=== PATIENT | female | born 1960 | race Caucasian/White ===

== ENCOUNTER → 2016-11-28 | Outpatient (CLI) | payer OTHER ==
[~2016-11-28] MED LIST: Z.0.NO CURRENT MEDS; ZITH500T PO
[2016-11-28 07:33] LABS: BASOPHIL # 0.1 TH/MM3 (0-0.2); BASOPHIL % 0.8 % (0.0-2.0); EOSINOPHIL # 0.3 TH/MM3 (0-0.4); EOSINOPHIL % 4.1 % (0.0-4.0); HEMATOCRIT 38.3 % (35.0-46.0); HEMO FLAGS DIFF FINAL; LYMPH % 25.2 % (9.0-44.0); LYMPHOCYTE # 1.7 TH/MM3 (1.0-4.8); MEAN CELL VOLUME 84.3 FL (80.0-100.0); MEAN CORPUSCULAR HEMOGLOBIN 28.6 PG (27.0-34.0); MEAN CORPUSCULAR HGB CONC 33.9 % (32.0-36.0); MONO % 9.6 % (0.0-8.0); NEUT % 60.3 % (16.0-70.0); PLATELET COUNT 291 TH/MM3 (150-450); RED BLOOD COUNT 4.54 MIL/MM3 (4.00-5.30); RED CELL DISTRIBUTION WIDTH 13.4 % (11.6-17.2); WHITE BLOOD COUNT 6.6 TH/MM3 (4.0-11.0)
[2016-11-28 07:47] LABS: BLOOD, URINE NEG (NEG); GLUCOSE,URINE NEG (NEG); KETONE, URINE NEG (NEG); NITRITE,URINE NEG (NEG); SQUAMOUS EPITHELIAL CELL URINE 2 /hpf (0-5); TRANSITIONAL EPI CELLS, URINE <1 /hpf; URINE COLOR YELLOW (YELLW/STRAW)
[2016-11-28 08:02] LABS: ALKALINE PHOSPHATASE 105 U/L (45-117); ALT (GPT) 20 U/L (10-53); ANION GAP 6 MEQ/L (5-15); AST (GOT) 16 U/L (15-37); BICARBONATE 29.6 MEQ/L (21.0-32.0); BLOOD UREA NITROGEN 20 MG/DL (7-18); CHLORIDE 104 MEQ/L (98-107); GLOMERULAR FILTRATION RATE 78 ML/MIN (>89); GLUCOSE,FASTING 104 MG/DL (74-99); HDL CHOLESTEROL 55.5 MG/DL (40.0-60.0); LDL CHOLESTEROL 104 MG/DL (0-99); POTASSIUM 4.3 MEQ/L (3.5-5.1); SODIUM (NA) 140 MEQ/L (136-145); TOTAL BILIRUBIN ADULT 0.2 MG/DL (0.2-1.0)
== END ==
LOC: CLAB 07:06
PROVIDERS: ATTEND Obstetrics & Gynecology
DX: Z00.00 Encounter for general adult medical examination without abnormal findings (principal)
CPT/HCPCS: 36415; 80053; 80061; 81001; 82306; 84439; 84443; 85025; 86038

== ENCOUNTER 2018-02-28 08:56 | Inpatient (IN) ==
[2018-02-28] MEDS ORDERED: Sod Chloride 0.9% Inj 1,000 ML IV.SIG ONE ×2 (09:14→11:33)
--- NOTE | 2018-02-28 09:18 | ED ---
HPI General Chief Complaint: Abdominal Pain Stated Complaint: Abd Pain x 2 Days Time Seen by Provider: 02/28/18 09:08 History of Present Illness HPI narrative: 58-year-old female history of hypothyroidism here for evaluation of abdominal pain that started 2 days ago, pain is located in the right upper quadrant, rated 8 out of 10, constant, nothing makes it better but moving makes it worse,she did not try anything [id number] for it, no diarrhea or constipation or blood in the stool no fever but chills at night. No nausea or vomiting. Last colonoscopy was 9 years ago "normal". Previous surgeries include tubal ligation laparoscopically many years ago Related Data Home Medications Medication Instructions Recorded Confirmed levothyroxine [Synthroid] 100 mcg PO DAILY 02/28/18 02/28/18 Allergies Allergy/AdvReac Type Severity Reaction Status Date / Time No Known Allergies Allergy Verified 03/02/18 09:57 Review of Systems Except as stated in HPI: all other systems reviewed are negative [facility] Surgical History Surgical History H/O tubal ligation (Acute) Social History Social History Substance History: No History of Abuse Second Hand Smoke Exposure: No Smoking Status: Unknown if ever smoked How Often Do You Have a Drink Containing Alcohol: Never Recent Travel [facility] within the Last 8 Weeks: No Recent Out of Country Travel within the Last 8 Weeks: No Exam Narrative Exam Narrative: GENERAL: Alert oriented 3 no acute distress SKIN: Focused skin assessment warm/dry. HEAD: Atraumatic. Normocephalic. EYES: Pupils equal and round. No scleral icterus. No injection or drainage. ENT: No nasal bleeding or discharge. Mucous membranes pink and moist. NECK: Trachea midline. No JVD. CARDIOVASCULAR: Regular rate and rhythm. No murmur appreciated. RESPIRATORY: No accessory muscle use. Clear to auscultation. Breath sounds equal bilaterally. GASTROINTESTINAL: Right upper quadrant tenderness with guarding but no rebound, abdomen soft, non-tender, nondistended. Hepatic and splenic margins not palpable. MUSCULOSKELETAL: No obvious deformities. No clubbing. No cyanosis. No edema. NEUROLOGICAL: Awake and alert. No obvious cranial nerve deficits. Motor grossly within normal limits. Normal speech. PSYCHIATRIC: Appropriate mood and affect; insight and judgment normal. Course Initial Documented Vital Signs Temperature 97.3 F L 02/28/18 08:58 Pulse Rate 100 H 02/28/18 08:58 Respiratory Rate 16 02/28/18 08:58 Blood Pressure 110/59 L 02/28/18 08:58 Pulse Oximetry 98 02/28/18 08:58 Last Documented Vital Signs Temperature 98.1 F 03/03/18 02:47 Pulse Rate 76 03/03/18 02:47 Respiratory Rate 18 03/03/18 02:47 Blood Pressure 145/86 H 03/03/18 02:47 Pulse Oximetry 98 03/03/18 02:47 Medical Decision Making [facility] Narrative Medical decision making narrative: 58-year-old female here for evaluation of abdominal pain in the right upper quadrant, physical examination remarkable for right upper quadrant tenderness with guarding, vitals are stable, labs show elevated white blood count with a low hemoglobin of 7.7, patient denies any history of anemia, Hemoccult here in the ER was negative, denies any bleeding anywhere. Spoke with Dr. christal Lindsey who accepted the patient I will take her for surgery in the main [facility]. Patient was given 2 L of IV fluids, 2 g of Rocephin and Flagyl IV. Lab Data Result diagrams: 03/02/18 08:46 03/01/18 10:16 Lab Results 02/28/18 02/28/18 02/28/18 Range/Units 09:20 09:20 09:20 CBC w Diff Slide review pending WBC 12.9 H (4.0-11.0) th/mm3 RBC 3.99 L (4.00-5.30) mil/mm3 Hgb 7.7 L (11.6-15.3) gm/dL Hct 24.1 L (35.0-46.0) % MCV 60.4 L (80.0-100.0) fL MCH 19.2 L (27.0-34.0) pg MCHC 31.9 L (32.0-36.0) % RDW 18.3 H (11.6-17.2) % Plt Count 514 H (150-450) th/mm3 MPV 6.9 L (7.0-11.0) fL Prelim Diff (Auto) Neut % (Auto) 74.8 H (16.0-70.0) % Lymph % (Auto) 13.1 (9.0-44.0) % Crisp % (Auto) 9.4 H (0.0-8.0) % Eos % (Auto) 0.4 (0.0-4.0) % Baso % (Auto) 2.3 H (0.0-2.0) % Neut # (Auto) 9.6 H (1.8-7.7) th/mm3 Lymph # (Auto) 1.7 (1.0-4.8) th/mm3 Crisp # (Auto) 1.2 H (0.0-0.9) th/mm3 Eos # (Auto) 0.1 (0.0-0.4) th/mm3 Baso # (Auto) 0.3 H (0.0-0.2) th/mm3 WBC Differential . Diff Scan Auto diff confirmed Differential Comment Ovalocytes 1+ H (None) Helmet Cells Occ H (None) Acanthocytes (Spur) Occ H (None) PT 11.0 (9.8-11.6) sec INR 1.1 Ratio APTT 28.9 (24.3-30.1) sec Sodium 133 L (136-145) meq/L Potassium 3.8 (3.5-5.1) meq/L Chloride 97 L (98-107) meq/L Carbon Dioxide 26.5 (21.0-32.0) meq/L Anion Gap 10 (5-15) meq/L BUN 11 (7-18) mg/dL Creatinine 0.72 (0.50-1.00) mg/dL Estimated GFR 83 L (>89) mL/min Random Glucose 113 H (74-106) mg/dL Lactic Acid (0.4-2.0) mmol/L Calcium 8.7 (8.5-10.1) mg/dL Total Bilirubin 0.6 (0.2-1.0) mg/dL AST 11 L (15-37) U/L ALT 17 (10-53) U/L Alkaline Phosphatase 84 (45-117) U/L Troponin I Less than 0.02 L (0.02-0.05) ng/mL Total Protein 7.5 (6.4-8.2) g/dL Albumin 3.1 L (3.4-5.0) g/dL Lipase 102 (73-393) U/L Ur Collection Type Urine Color (Yellw/Straw) Urine Clarity (Clear) Urine pH (5.0-8.5) Ur Specific Randlett (1.002-1.035) Urine Protein (Neg-Trace) mg/dL Urine Glucose (UA) (Negative) mg/dL Urine Ketones (Negative) mg/dL Urine Occult Blood (Negative) Urine Nitrate (Negative) Urine Bilirubin (Negative) Urine Urobilinogen (Less than 2) mg/dL Ur Leukocyte Esterase (Negative) Urine WBC (0-5) /hpf Ur Squamous Epith Cells (0-5) /hpf Ur Renal Epithelial Cell (None) /hpf Micro UA Comment Urine Culture Comments Blood Type Blood Type Confirm Blood Type Recheck Antibody Screen MTS Gel Crossmatch 02/28/18 02/28/18 02/28/18 Range/Units 09:20 11:15 16:10 CBC w Diff WBC (4.0-11.0) th/mm3 RBC (4.00-5.30) mil/mm3 Hgb (11.6-15.3) gm/dL Hct (35.0-46.0) % MCV (80.0-100.0) fL MCH (27.0-34.0) pg MCHC (32.0-36.0) % RDW (11.6-17.2) % Plt Count (150-450) th/mm3 MPV (7.0-11.0) fL Prelim Diff (Auto) Neut % (Auto) (16.0-70.0) % Lymph % (Auto) (9.0-44.0) % Crisp % (Auto) (0.0-8.0) % Eos % (Auto) (0.0-4.0) % Baso % (Auto) (0.0-2.0) % Neut # (Auto) (1.8-7.7) th/mm3 Lymph # (Auto) (1.0-4.8) th/mm3 Crisp # (Auto) (0.0-0.9) th/mm3 Eos # (Auto) (0.0-0.4) th/mm3 Baso # (Auto) (0.0-0.2) th/mm3 WBC Differential Diff Scan Differential Comment Ovalocytes (None) Helmet Cells (None) Acanthocytes (Spur) (None) PT (9.8-11.6) sec INR Ratio APTT (24.3-30.1) sec Sodium (136-145) meq/L Potassium (3.5-5.1) meq/L Chloride (98-107) meq/L Carbon Dioxide (21.0-32.0) meq/L Anion Gap (5-15) meq/L BUN (7-18) mg/dL Creatinine (0.50-1.00) mg/dL Estimated GFR (>89) mL/min Random Glucose (74-106) mg/dL Lactic Acid 1.2 (0.4-2.0) mmol/L Calcium (8.5-10.1) mg/dL Total Bilirubin (0.2-1.0) mg/dL AST (15-37) U/L ALT (10-53) U/L Alkaline Phosphatase (45-117) U/L Troponin I (0.02-0.05) ng/mL Total Protein (6.4-8.2) g/dL Albumin (3.4-5.0) g/dL Lipase (73-393) U/L Ur Collection Type Clean catch Urine Color Yellow (Yellw/Straw) Urine Clarity Clear (Clear) Urine pH 5.5 (5.0-8.5) Ur Specific Randlett Less/equal 1.005 (1.002-1.035) Urine Protein Negative (Neg-Trace) mg/dL Urine Glucose (UA) Negative (Negative) mg/dL Urine Ketones Negative (Negative) mg/dL Urine Occult Blood Negative (Negative) Urine Nitrate Negative (Negative) Urine Bilirubin Negative (Negative) Urine Urobilinogen 0.2 (Less than 2) mg/dL Ur Leukocyte Esterase Small H (Negative) Urine WBC 0-5 (0-5) /hpf Ur Squamous Epith Cells 0-5 (0-5) /hpf Ur Renal Epithelial Cell 1-5 H (None) /hpf Micro UA Comment Culture not ind Urine Culture Comments Culture not ind Blood Type O Positive Blood Type Confirm Blood Type Recheck Not needed Antibody Screen Negative MTS Gel Crossmatch 02/28/18 02/28/18 03/01/18 Range/Units 16:10 16:10 10:16 CBC w Diff WBC 16.5 H (4.0-11.0) th/mm3 RBC 3.91 L (4.00-5.30) mil/mm3 Hgb 6.9 L* (11.6-15.3) gm/dL Hct 23.5 L (35.0-46.0) % MCV 60.0 L (80.0-100.0) fL MCH 17.6 L (27.0-34.0) pg MCHC 29.4 L (32.0-36.0) % RDW 19.3 H (11.6-17.2) % Plt Count 515 H (150-450) th/mm3 MPV 6.8 L (7.0-11.0) fL Prelim Diff (Auto) Guide Changer Neut % (Auto) 86.8 H (16.0-70.0) % Lymph % (Auto) 6.7 L (9.0-44.0) % Crisp % (Auto) 6.3 (0.0-8.0) % Eos % (Auto) 0.0 (0.0-4.0) % Baso % (Auto) 0.2 (0.0-2.0) % Neut # (Auto) 14.3 H (1.8-7.7) th/mm3 Lymph # (Auto) 1.1 (1.0-4.8) th/mm3 Crisp # (Auto) 1.0 H (0.0-0.9) th/mm3 Eos # (Auto) 0.0 (0.0-0.4) th/mm3 Baso # (Auto) 0.0 (0.0-0.2) th/mm3 WBC Differential . Diff Scan Differential Comment Auto diff final Ovalocytes (None) Helmet Cells (None) Acanthocytes (Spur) (None) PT (9.8-11.6) sec INR Ratio APTT (24.3-30.1) sec Sodium (136-145) meq/L Potassium (3.5-5.1) meq/L Chloride (98-107) meq/L Carbon Dioxide (21.0-32.0) meq/L Anion Gap (5-15) meq/L BUN (7-18) mg/dL Creatinine (0.50-1.00) mg/dL Estimated GFR (>89) mL/min Random Glucose (74-106) mg/dL Lactic Acid (0.4-2.0) mmol/L Calcium (8.5-10.1) mg/dL Total Bilirubin (0.2-1.0) mg/dL AST (15-37) U/L ALT (10-53) U/L Alkaline Phosphatase (45-117) U/L Troponin I (0.02-0.05) ng/mL Total Protein (6.4-8.2) g/dL Albumin (3.4-5.0) g/dL Lipase (73-393) U/L Ur Collection Type Urine Color (Yellw/Straw) Urine Clarity (Clear) Urine pH (5.0-8.5) Ur Specific Randlett (1.002-1.035) Urine Protein (Neg-Trace) mg/dL Urine Glucose (UA) (Negative) mg/dL Urine Ketones (Negative) mg/dL Urine Occult Blood (Negative) Urine Nitrate (Negative) Urine Bilirubin (Negative) Urine Urobilinogen (Less than 2) mg/dL Ur Leukocyte Esterase (Negative) Urine WBC (0-5) /hpf Ur Squamous Epith Cells (0-5) /hpf Ur Renal Epithelial Cell (None) /hpf Micro UA Comment Urine Culture Comments Blood Type Blood Type Confirm O Positive Blood Type Recheck Antibody Screen MTS Gel Crossmatch See Detail 03/01/18 03/02/18 Range/Units 10:16 08:46 CBC w Diff WBC (4.0-11.0) th/mm3 RBC (4.00-5.30) mil/mm3 Hgb 6.6 L* (11.6-15.3) gm/dL Hct 21.7 L (35.0-46.0) % MCV (80.0-100.0) fL MCH (27.0-34.0) pg MCHC (32.0-36.0) % RDW (11.6-17.2) % Plt Count (150-450) th/mm3 MPV (7.0-11.0) fL Prelim Diff (Auto) Neut % (Auto) (16.0-70.0) % Lymph % (Auto) (9.0-44.0) % Crisp % (Auto) (0.0-8.0) % Eos % (Auto) (0.0-4.0) % Baso % (Auto) (0.0-2.0) % Neut # (Auto) (1.8-7.7) th/mm3 Lymph # (Auto) (1.0-4.8) th/mm3 Crisp # (Auto) (0.0-0.9) th/mm3 Eos # (Auto) (0.0-0.4) th/mm3 Baso # (Auto) (0.0-0.2) th/mm3 WBC Differential Diff Scan Differential Comment Ovalocytes (None) Helmet Cells (None) Acanthocytes (Spur) (None) PT (9.8-11.6) sec INR Ratio APTT (24.3-30.1) sec Sodium 138 (136-145) meq/L Potassium 3.9 (3.5-5.1) meq/L Chloride 104 (98-107) meq/L Carbon Dioxide 23.3 (21.0-32.0) meq/L Anion Gap 11 (5-15) meq/L BUN 8 (7-18) mg/dL Creatinine 0.56 (0.50-1.00) mg/dL Estimated GFR Greater than 89 (>89) mL/min Random Glucose 116 H (74-106) mg/dL Lactic Acid (0.4-2.0) mmol/L Calcium 9.3 (8.5-10.1) mg/dL Total Bilirubin (0.2-1.0) mg/dL AST (15-37) U/L ALT (10-53) U/L Alkaline Phosphatase (45-117) U/L Troponin I (0.02-0.05) ng/mL Total Protein (6.4-8.2) g/dL Albumin (3.4-5.0) g/dL Lipase (73-393) U/L Ur Collection Type Urine Color (Yellw/Straw) Urine Clarity (Clear) Urine pH (5.0-8.5) Ur Specific Randlett (1.002-1.035) Urine Protein (Neg-Trace) mg/dL Urine Glucose (UA) (Negative) mg/dL Urine Ketones (Negative) mg/dL Urine Occult Blood (Negative) Urine Nitrate (Negative) Urine Bilirubin (Negative) Urine Urobilinogen (Less than 2) mg/dL Ur Leukocyte Esterase (Negative) Urine WBC (0-5) /hpf Ur Squamous Epith Cells (0-5) /hpf Ur Renal Epithelial Cell (None) /hpf Micro UA Comment Urine Culture Comments Blood Type Blood Type Confirm Blood Type Recheck Antibody Screen MTS Gel Crossmatch Imaging Data Radiologist's impression: ITS Impressions Chest X-Ray 02/28/18 09:14 CONCLUSION: No acute cardiopulmonary disease Abdomen/Pelvis CT 02/28/18 10:16 CONCLUSION: 1. Wall thickening of the cecum with dilated tubular structure and probable appendicolith. This is concerning for acute appendicitis. 2. There are some prominent lymph nodes in the right lower quadrant likely inflammatory. 3. Small amount of pelvic free fluid. Discharge Plan Discharge Disposition Patient Disposition: 02 Transfer To [facility] [place] Discharge Condition Condition: Stable Discharge Order Discharge Orders: Discharge Order (Routine); Ordered 03/03/18 Ordered By: Jc Swartz Physicians Team ED Provider: Chad Topete Primary Care Provider: Bharat Oneill Attending Provider: Brandin Schmidt Interventions Interventions: ED Discharge Assessment Last Done: 02/28/18 14:50 Vital Signs Last Done: 02/28/18 15:49 Status ED Status: Left Department Discharge Information Discharge Date/Time: 02/28/18 14:50
[2018-02-28 09:35] LABS: Baso # (Auto) 0.3 th/mm3 (0.0-0.2); Baso % (Auto) 2.3 % (0.0-2.0); Eos # (Auto) 0.1 th/mm3 (0.0-0.4); Eos % (Auto) 0.4 % (0.0-4.0); Hematocrit 24.1 % (35.0-46.0); Hemoglobin 7.7 gm/dL (11.6-15.3); Lymph # (Auto) 1.7 th/mm3 (1.0-4.8); Lymph % (Auto) 13.1 % (9.0-44.0); Mean Corpuscular HGB Conc 31.9 % (32.0-36.0); Mean Corpuscular Hemoglobin 19.2 pg (27.0-34.0); Mean Corpuscular Volume 60.4 fL (80.0-100.0); Mean Platelet Volume 6.9 fL (7.0-11.0); Mono # (Auto) 1.2 th/mm3 (0.0-0.9); Mono % (Auto) 9.4 % (0.0-8.0); Neut # (Auto) 9.6 th/mm3 (1.8-7.7); Neut % (Auto) 74.8 % (16.0-70.0); Platelet Count 514 th/mm3 (150-450); Red Blood Count 3.99 mil/mm3 (4.00-5.30); Red Cell Distribution Width 18.3 % (11.6-17.2); White Blood Count 12.9 th/mm3 (4.0-11.0)
--- NOTE | 2018-02-28 09:41 | XR ---
EXAM DATE: 02/28/2018 9:39 AM EDT AGE/SEX: 58 years / Female INDICATIONS: Right upper quadrant pain x 2 days. Cough. CLINICAL DATA: This is the patient's initial encounter. Patient reports that signs and symptoms have been present for 2 days and indicates a pain score of 8/10. MEDICAL/SURGICAL HISTORY: Hypothyroidism. section. COMPARISON: No prior exams available for comparison. FINDINGS: A single AP view of the chest demonstrates the lungs to be symmetrically aerated without evidence of mass, infiltrate or effusion. The cardiomediastinal contours are unremarkable. Osseous structures a re intact. CONCLUSION: No acute cardiopulmonary disease Electronically signed by: Uzair Tucker MD 02/28/2018 9:40 AM EDT
[2018-02-28 09:53] LABS: Albumin 3.1 g/dL (3.4-5.0); Calcium 8.7 mg/dL (8.5-10.1); Carbon Dioxide 26.5 meq/L (21.0-32.0); Glucose,Random 113 mg/dL (74-106); Lipase 102 U/L (73-393)
[2018-02-28 09:54] LABS: Activated Partial Thrombo Time 28.9 sec (24.3-30.1); INR 1.1 Ratio
[2018-02-28 09:56] LABS: Anion Gap 10 meq/L (5-15); Chloride 97 meq/L (98-107); Glomerular Filtration Rate 83 mL/min (>89); Potassium 3.8 meq/L (3.5-5.1); Sodium 133 meq/L (136-145)
[2018-02-28 09:58] LABS: Total Protein 7.5 g/dL (6.4-8.2)
[2018-02-28 09:59] LABS: Alkaline Phosphatase 84 U/L (45-117)
[2018-02-28 10:07] LABS: Acanthocytes Occ; Alanine Aminotransferase 17 U/L (10-53); Helmet Cells Occ; Ovalocytes 1+
[2018-02-28 10:09] LABS: Blood Urea Nitrogen 11 mg/dL (7-18)
[2018-02-28 10:10] LABS: Aspartate Aminotransferase 11 U/L (15-37)
[2018-02-28 11:21] LABS: Bilirubin,Urine Negative (Negative); Clarity,Urine Clear (Clear); Color,Urine Yellow (Yellw/Straw); Glucose,Urine (UA) Negative (Negative); Leukocyte Esterase,Urine Small (Negative); Nitrite,Urine Negative (Negative); PH,Urine 5.5 (5.0-8.5); Specific Gravity,Urine Less/Equal 1.005 (1.002-1.035); Urobilinogen,Urine 0.2 mg/dL (Less than 2)
[2018-02-28 11:28] LABS: Squamous Epithelial Cell,Urine 0-5 /hpf (0-5); WBC,Urine 0-5 /hpf (0-5)
--- NOTE | 2018-02-28 15:53 | P.HPGS ---
History of Present Illness Service: General surgery Primary Care Physician: Bharat Oneill MD Chief Complaint: Abdominal pain History of Present Illness: Patient is a pleasant 58-year-old woman who actually works here at [employer] who began experiencing significant right-sided abdominal pain loss of appetite and chills on Monday. She has not eaten much since then. She denies fevers. She has had normal urinary output but has not had much of any bowel function. She has a known history of hypothyroidism for which she takes Synthroid. She did not take it for about a month before her recent [facility] exam and labs have been delayed until she has been on her Synthroid for at least a month. She denies hematemesis. She denies blood in her stool or black tarry tarry stools. She has a previous history of laparoscopic tubal ligation. 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 She did not have any problems with her anesthesia. She was evaluated emergency department [place] and found to have an elevated white count with a left shift. She is also interestingly found to have anemia. The etiology is unclear. CT scan demonstrates an inflammatory mass in the right lateral abdomen consistent with appendicitis. Additionally the cecum is inflamed or thickened and there are apparent inflammatory lymph nodes. There is no free air or free fluid. She was transported to the main hospital for surgical treatment due to her abnormal appearing cecum as well as her anemia. She did have a Hemoccult study at the [place] ER before transport by her report was negative. Her last colonoscopy was at age 49 and apparently was normal. - Diagnosis (1) Appendicitis, acute (2) Abnormal computed tomography of cecum and terminal ileum - Inpatient Certification If this patient has been admitted as an Inpatient: I certify that the inpatient services were ordered in accordance with Medicare regulations governing the order. This includes certification that hospital inpatient services are reasonable and necessary and in the case of services not specified as inpatient-only under 42 CFR 419.22(n), that they are appropriately provided as inpatient services in accordance to with the 2-midnight benchmark under 43 CFR 412.3(e) Estimated Total Length of Stay (Days): 2 Plans for Post Hospital Care: Home Review of Systems Patient denies changes in her vision or hearing. She has no primary lung or heart disorders. She denies liver or kidney disease. She has never had a stroke or seizure. She denies ever being placed on blood thinning medications. All other systems reviewed negative except as stated in HPI Constitutional: Reports anorexia, Reports chills, Reports lack of energy PMFSH - History History Provided By: Patient (Patient has a history of hypothyroidism and laparoscopic tubal ligation. She takes only Synthroid as a medication. She tries to avoid any pain medications. She denies ever being a smoker. She denies alcohol use. 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.) - Medical History Medical History: Medical History (Last Reviewed 02/28/18 @ 10:04 by King Cameron) Hypothyroid - Surgical History Surgical History: Surgical History (Last Updated 02/28/18 @ 09:37 by Diamond Ayala) H/O tubal ligation - Tobacco History Smoking Status: Unknown if ever smoked - Alcohol History How Often Do You Have a Drink Containing Alcohol: Never - Travel History Recent Travel in the [place] Within the Last 8 Weeks: No Recent Travel Out of the Country Within the Last 8 Weeks: No - Immunization History Tetanus Immunization: Unable to Assess Hx Influenza Vaccine This Season: Yes Medications and Allergies Allergies Allergy/AdvReac Type Severity Reaction Status Date / Time No Known Allergies Allergy Unverified 02/28/18 08:58 Home Medications Medication Instructions Recorded Confirmed Type levothyroxine [Synthroid] 100 mcg PO DAILY 02/28/18 02/28/18 History Exam Vital signs: Vital Signs 02/28/18 08:58 02/28/18 11:00 Temperature 97.3 F L Pulse Rate 100 H 92 H Respiratory Rate 16 16 Blood Pressure 110/59 L 109/62 Pulse Oximetry 98 97 Intake & Output 02/27/18 02/28/18 02/28/18 18:59 06:59 18:59 Intake Total 1100 / 1100 Balance 1100 / 1100 Weight 81.2 kg Intake: IV 1100 / 1100 NS Inj 1,000 ML @ Wide Open IV. 1000 / 1000 SIG BOLUS ONE Rx#:[id number] Rocephin Inj 2,000 MG In NS Inj 0 / 0 100 ML @ 200 mls/hr IV.SIG STAT STA Rx#:[id number] Flagyl 500 MG Inj 100 ML @ 100 100 / 100 mls/hr IV.SIG ONCE ONE Rx#: [id number] Narrative: She is a well-developed well-nourished woman who is in no acute distress. She is pleasant and cooperative exam. HEENT she is normocephalic atraumatic her pupils are 3-4 mm round and reactive to light. Her sclera are anicteric. Her oropharynx is clear without mucosal lesions. She has good dentition. Her neck is supple without adenopathy. She has a midline trachea and no jugular venous distention. There are no carotid bruits. Her lungs are clear and equal anteriorly bilaterally. Her heart sounds are regular without murmur rub or gallop. Breasts genital and rectal exams were deferred. Her abdomen is soft and nondistended there are no obvious scars. There are no obvious hernias. She is tender in the right lateral abdomen. There is no rebound or guarding. Her extremities show no cyanosis clubbing or edema. She is equal bilateral radial and dorsalis pedis pulses. Neurologically she is awake alert and oriented. She is equal bilateral med aide strength. She has no gross motor or sensory deficit. She has no evidence of depression, she she is oriented. Results - Results Labs: She has an elevated white count with a left shift. Her hemoglobin is low at 7.7. CT scan - abdomen: report reviewed, image reviewed (Tubular inflammatory mass with apparent appendicolith in the thickening of the cecal wall and pericecal enlarged lymph nodes. The inflammatory mass consistent with appendicitis is in the right lateral abdomen.) Caprini VTE Risk Assessment Caprini VTE Risk Assessment: Moderate/High Risk (score >= 2) (Sequential compression device will be used.) Caprini Risk Assessment Model: Point Value = 1 Point Value = 2 Point Value = 3 Point Value = 5 Age 41-60 Minor surgery BMI > 25 kg/m2 Swollen legs Varicose veins or History of unexplained or recurrent spontaneous Oral contraceptives or hormone replacement Sepsis (< 1 month) Serious lung disease, including pneumonia (< 1 month) Abnormal pulmonary function Acute myocardial infarction Congestive heart failure (< 1 month) History of inflammatory bowel disease Medical patient at bed rest Age 61-74 Arthroscopic surgery Major open surgery (> 45 min) Laparoscopic surgery (> 45 min) Malignancy Confined to bed (> 72 hours) Immobilizing plaster cast Central venous access Age >= 75 History of VTE Family history of VTE Factor V Leiden Prothrombin [id number] Lupus anticoagulant Anticardiolipin antibodies Elevated serum homocysteine Heparin-induced thrombocytopenia Other congenital or acquired thrombophilia Stroke (< 1 month) Elective arthroplasty Hip, pelvis, or leg fracture Acute spinal cord injury (< 1 month) Prophylaxis Regimen: Total Risk Factor Score Risk Level Prophylaxis Regimen 0-1 Low Early ambulation 2 Moderate Order ONE of the following: *Sequential Compression Device (SCD) *Heparin 5000 units SQ BID 3-4 Higher Order ONE of the following medications: *Heparin 5000 units SQ TID *Enoxaparin/Lovenox 40 mg SQ daily (WT < 150 kg, CrCl > 30 mL/min) *Enoxaparin/Lovenox 30 mg SQ daily (WT < 150 kg, CrCl > 10-29 mL/min) *Enoxaparin/Lovenox 30 mg SQ BID (WT < 150 kg, CrCl > 30 mL/min) AND/OR *Sequential Compression Device (SCD) 5 or more Highest Order ONE of the following medications: *Heparin 5000 units SQ TID (Preferred with Epidurals) *Enoxaparin/Lovenox 40 mg SQ daily (WT < 150 kg, CrCl > 30 mL/min) *Enoxaparin/Lovenox 30 mg SQ daily (WT < 150 kg, CrCl > 10-29 mL/min) *Enoxaparin/Lovenox 30 mg SQ BID (WT < 150 kg, CrCl > 30 mL/min) AND *Sequential Compression Device (SCD) Assessment and Plan - Assessment (1) Appendicitis, acute Code(s): K35.80 - Unspecified acute appendicitis Status: Acute Plan: Is a 58-year-old woman with history of hypothyroidism and unknown but newly diagnosed anemia who presents with abdominal pain and findings most consistent with a complicated acute appendicitis. The cecum appears thickened. I discussed in detail with the patient my recommendations for laparoscopy laparoscopic appendectomy possible open surgery possible bowel resection. She is medically aware and is agreeable to proceed with my recommendations and understands the potential findings at surgery and the potential surgical outcomes. The risks of bleeding infection injury to intra-abdominal contents including bowel ureter bladder possible open surgery possible bowel resection DVT pulmonary embolus and expectations for recovery and she understands and wished to proceed. Patient is received preoperative intravenous antibiotics. Sequential compression device will be used. (2) Abnormal computed tomography of cecum and terminal ileum Code(s): R93.3 - Abnormal findings on diagnostic imaging of other parts of digestive tract Status: Acute - Plan Code Status: Full code Discussed Condition With: Patient and operative team
[2018-02-28] MEDS ORDERED: Neostigmine Inj 5 MG/5 ML Syringe IV.PUSH ONE (16:55)
[2018-02-28] MEDS ORDERED: Lidocaine PF 1% Inj 5 ML Syringe INFILTRATN ONE (16:55)
[2018-02-28] MEDS ORDERED: Phenylephrine/NS 1000 MCG/10ML Syringe IV.PUSH ONE (16:55)
[2018-02-28] MEDS ORDERED: Glycopyrrolate Inj 1 MG/5 ML Syringe IV.PUSH ONE (16:55)
[2018-02-28] MEDS ORDERED: Naloxone Inj 0.4 MG/ML Vial IV.PUSH PRN (18:36)
[2018-02-28] MEDS ORDERED: Promethazine 25 MG Supp RECTAL PRN (18:36)
[2018-02-28] MEDS ORDERED: Morphine Inj 4 MG/ML Vial IV.PUSH PRN (18:36)
[2018-02-28] MEDS ORDERED: Post-op Orders (for Pharmacy) OTHER ONE (18:36)
[2018-02-28] MEDS ORDERED: Bisacodyl 10 MG Supp RECTAL PRN (18:36)
[2018-02-28] MEDS ORDERED: Enoxaparin Inj 40 MG/0.4 ML Syringe SQ SCH (18:45)
[2018-02-28] MEDS ORDERED: *morphine SULFATE 4 MG/ML PERIprocedure ONLY ONE ×3 (18:49→19:13)
[2018-02-28] MEDS ORDERED: fentaNYL Citrate Inj 100 MCG/2 ML Ampul ONE (18:57)
--- NOTE | 2018-02-28 19:03 | P.OP ---
Date of procedure: 02/28/18 Procedure: Laparoscopic assisted right hemicolectomy Anesthesia: GETA Surgeon: Brandin Schmidt MD Piccolo Mechanic: [place] Estimated blood loss (mL): 25 Pathology: other (Terminal ileum right colon and appendix to pathology) Operation and Findings: Patient was identified as Pat Arana, taken to the operating room and placed in a supine position. Sequential compression device were placed on bilateral lower extremities. Following induction of adequate general endotracheal anesthesia, the patient's abdomen was prepped and draped in the usual sterile fashion with Betadine. A timeout procedure was performed. Following completion timeout procedure everyone's satisfaction within the room, local anesthetic was infiltrated in the supraumbilical position. A small transverse supraumbilical incision was carried out the scalpel dissection continued posterior level the midline fascia. The base of the umbilicus was retracted anteriorly and the supraumbilical fascia was incised in vertical fashion allowing for entry into the peritoneal cavity using a hemostat. This entry was confirmed with the surgeon's finger and the applied medical balloon Mariee trocar was placed into the peritoneal cavity, its balloon inflated, and CO2 insufflation to a level of 15 mmHg ensued. 2 5 mm trochars were placed into the peritoneal cavity one in the inferior midline one in the superior midline. This was done under direct laparoscopic view after incision in the skin with a scalpel. Attention was turned to the right mid abdomen. Inflammatory mass was identified. The cecum was very thickened and hard. The terminal ileum was adherent to the right lateral peritoneum and this was mobilized using blunt dissection. The appendix appeared to be very thickened and swollen and adherent to the lateral wall of the peritoneum as well as to the ascending colon. It was able to be mobilized off the lateral wall of the peritoneum, but not off of the acsending colon. A significant portion of the cecum appeared to be involved. It was determined at this time there would need to be a formal resection. In mobilizing the right colon laparoscopically the omentum was taken off the colon the proximal transverse colon using the harmonic scalpel. The hepatic flexure was mobilized inferiorly and the entire right colon mobilized along the white line of Toldt. Once mobilization had been completely performed a mini laparotomy incision was made extending the supraumbilical transverse incision laterally to the right after instillation of local anesthetic. Hemostasis was controlled with electrocautery dissection continued posteriorly through generous subcutaneous fatty tissue layer until the anterior fascia was incised with the cutting mode of the electrocautery. The underlying muscle was carefully divided with electrocautery taking care of any bleeding points. The posterior fascia and peritoneal incision was extended to the length of the skin incision using electrocautery. The Ankur wound retractor was then placed into the wound protecting the skin and subcutaneous fatty tissue from the further dissection. Huge inflammatory mass including the cecum and appendix and portion of the ascending colon was then able to be brought out through the wound protector/ retractor and a site of the terminal ileum was selected for division. A small window was made in the mesentery and the bowel was divided with the linear cutting stapling device. A site on the proximal transverse colon was selected as well and in a similar fashion, a window in the mesentery was made and the bowel was divided with the linear cutting stapling device. Formal cancer operation was performed and at least one enlarged abnormal appearing node in the mesentery was identified mesentery was taken down using combination of the harmonic scalpel 2-0 Vicryl ligatures and electrocautery. The specimen was removed in its entirety and passed off the field for pathologic evaluation. A functional end-to-end gitz-eh-sjbr anastomosis using 3-0 silk suture the linear cutting stapling device and the TX stapling device. Staple line was reinforced at its distal end with a 3-0 silk suture. Staple line was imbricated with interrupted 3-0 silk sutures. The mesenteric defect was closed with interrupted [id number]-[id number] 3-0 silk sutures. The anastomosis appeared widely patent. There was minimal to no leakage of bowel contents. The anastomosis was reinforced covering it with omental tissue. The right mid abdomen was irrigated copiously saline and suctioned out. Gloves were changed. The abdomen the abdominal incision was closed in the right side of the abdomen with in 2 layers using a running #1 single hours. Irrigation in between layers and in the superficial subcutaneous tissue was performed using saline. Subcutaneous fatty tissue layer was gently approximate with interrupted 2-0 and 3-0 Vicryl sutures. The 3 skin incisions were approximated with 4-0 Monocryl subcuticular sutures. The 5 mm port sites were covered with Mastisol and half- inch brown Steri-Strips. A folded piece of a 4 x 4's placed within the umbilicus and the transverse incision was covered in a traditional fashion with a PIC O dressing. It was connected to suction with no evidence of leak. The patient tolerated the procedures without apparent complication. Sponge needle and instrument counts were correct at the end of the case. The patient was transported to PACU in stable condition.
[2018-02-28] MEDS: Ketorolac Inj 30 MG/ML (IVP) Vial IV.PUSH PRN (21:13)
[2018-02-28] MEDS: Senna/Docusate Sodium 8.6/50 MG Tablet PO SCH (21:14)
[2018-02-28] MEDS: Pantoprazole Inj 40 MG Vial IV.PUSH SCH (21:14)
[2018-03-01] MEDS: Levothyroxine 100 MCG Tablet PO SCH (06:08)
[2018-03-01] MEDS: Senna/Docusate Sodium 8.6/50 MG Tablet PO SCH ×2 (09:13→21:08)
[2018-03-01 10:40] LABS: Baso % (Auto) 0.2 % (0.0-2.0); Lymph # (Auto) 1.1 th/mm3 (1.0-4.8); Lymph % (Auto) 6.7 % (9.0-44.0); Mean Corpuscular Hemoglobin 17.6 pg (27.0-34.0); Mean Platelet Volume 6.8 fL (7.0-11.0); Mono % (Auto) 6.3 % (0.0-8.0); Neut # (Auto) 14.3 th/mm3 (1.8-7.7); Neut % (Auto) 86.8 % (16.0-70.0); Platelet Count 515 th/mm3 (150-450); Red Blood Count 3.91 mil/mm3 (4.00-5.30); Red Cell Distribution Width 19.3 % (11.6-17.2); White Blood Count 16.5 th/mm3 (4.0-11.0)
[2018-03-01 10:49] LABS: Mean Corpuscular HGB Conc 29.4 % (32.0-36.0)
[2018-03-01 10:53] LABS: Hematocrit 23.5 % (35.0-46.0); Hemoglobin 6.9 gm/dL (11.6-15.3)
[2018-03-01 11:11] LABS: Anion Gap 11 meq/L (5-15); Blood Urea Nitrogen 8 mg/dL (7-18); Calcium 9.3 mg/dL (8.5-10.1); Carbon Dioxide 23.3 meq/L (21.0-32.0); Chloride 104 meq/L (98-107); Glomerular Filtration Rate Greater Than 89 mL/min (>89); Glucose,Random 116 mg/dL (74-106); Potassium 3.9 meq/L (3.5-5.1); Sodium 138 meq/L (136-145)
--- NOTE | 2018-03-01 11:42 | P.PNGS ---
Subjective Patient reports: feels better, voiding w/o difficulty, no flatus, no bowel movement (Patient feels better than preoperatively. The preoperative pain is gone. She is sore, as expected after surgery. She has been up to the bathroom and is emptied her bladder without difficulty. She has no nausea. She is eating 5 or 6 cups of ice. She would be willing to try Ensure vanilla.) Physical Exam Vital signs: Vital Signs 02/28/18 15:49 02/28/18 18:42 02/28/18 18:45 Temperature 99.7 F H 98.2 F 98.2 F Pulse Rate 93 H 93 H 98 H Respiratory Rate 16 16 16 Blood Pressure 144/77 H 142/62 H 139/63 Pulse Oximetry 97 98 02/28/18 18:51 02/28/18 19:00 02/28/18 19:05 Temperature Pulse Rate 100 H Respiratory Rate 16 22 16 Blood Pressure 121/58 L Pulse Oximetry 98 02/28/18 19:15 02/28/18 19:30 02/28/18 19:45 Temperature 98.2 F Pulse Rate 98 H 98 H 98 H Respiratory Rate 17 15 12 Blood Pressure 132/61 127/59 L 140/69 Pulse Oximetry 99 99 100 02/28/18 23:04 03/01/18 08:00 Temperature 97.5 F L Pulse Rate 72 Respiratory Rate 16 18 Blood Pressure 143/73 H Pulse Oximetry 98 Intake & Output 02/28/18 03/01/18 03/01/18 18:59 06:59 18:59 Intake Total 3100 / 3100 2250 / 2250 Output Total 35 / 35 0 / 0 Balance 3065 / 3065 2250 / 2250 Weight 81.2 kg Intake: IV 1100 / 1100 2200 / 2200 Ofirmev Inj 1,000 mg In 100 ml 200 / 200 @ 400 mls/hr IV.SIG Q6H JENN Rx# :[id number] LR 1000 mL Inj 1,000 ML @ 125 1000 / 1000 mls/hr IV.SIG .Q8H JENN Rx#: [id number] NS Inj 1,000 ML @ Wide Open IV. 1000 / 1000 SIG BOLUS ONE Rx#:[id number] Rocephin Inj 2,000 MG In NS Inj 0 / 0 100 ML @ 200 mls/hr IV.SIG STAT STA Rx#:[id number] Flagyl 500 MG Inj 100 ML @ 100 100 / 100 mls/hr IV.SIG ONCE ONE Rx#: [id number] Oral 50 / 50 Anesthesia Amount 1999 Output: Urine 0 / 0 Estimated Blood Loss 35 / 35 Other: # Voids 3 Date of Last Bowel Movement 02/25/18 - Constitutional no acute distress - Routine Respiratory Exam Present: CTA bilaterally - Routine Cardiovascular Exam Present: RRR, S1, S2 - Routine Abdominal Exam Present: soft, normoactive bowel sounds Comments: Minimal postoperative tenderness. PIC O dressing intact without drainage. 2 small laparoscopy scar is healing but he Steri-Strips without erythema or drainage. - Routine Extremities Exam Comments: No lower extremity edema, SCDs in place. - Routine Psychiatric Exam Present: normal affect, normal thought process Assessment and Plan - Assessment (1) Appendicitis, acute Code(s): K35.80 - Unspecified acute appendicitis Status: Acute Plan: Is a 58-year-old woman with history of hypothyroidism and unknown but newly diagnosed anemia who presents with abdominal pain and findings most consistent with a complicated acute appendicitis. The cecum appears thickened. I discussed in detail with the patient my recommendations for laparoscopy laparoscopic appendectomy possible open surgery possible bowel resection. She is medically aware and is agreeable to proceed with my recommendations and understands the potential findings at surgery and the potential surgical outcomes. The risks of bleeding infection injury to intra-abdominal contents including bowel ureter bladder possible open surgery possible bowel resection DVT pulmonary embolus and expectations for recovery and she understands and wished to proceed. Patient is received preoperative intravenous antibiotics. Sequential compression device will be used. (2) Abnormal computed tomography of cecum and terminal ileum Code(s): R93.3 - Abnormal findings on diagnostic imaging of other parts of digestive tract Status: Acute - Plan Postop day 1, laparoscopic assisted right hemicolectomy for grossly abnormal appendix, cecum and ascending colon, worrisome for potential colon cancer. Anemia also concerning for colon cancer. Hemoglobin today 6.9. Patient remains hemodynamically stable. Plan ensure vanilla over ice 1 serving 3 times a day as tolerated. Patient will walk the halls later this afternoon. She remains very comfortable. She does not desire any additional pain medication. She wants to wait on taking any iron supplementation until her bowel function has returned. Anticipate hospitalization for 1-2 more days. Discussed potential for pathology, showed her operative photographs of what was resected. Discussed Condition With: Patient and bedside RN
--- NOTE | 2018-03-01 18:00 | ECG ---
Date Performed: 02/28/2018 Time Performed: 12:32:49 PTAGE: 58 years EKG: Sinus rhythm MINIMAL ST DEPRESSION BORDERLINE ECG NO PREVIOUS TRACING DOCTOR: Gwendolyn Morales Interpretating Date/Time 03/01/2018 17:57:59
[2018-03-01] MEDS: Ketorolac Inj 30 MG/ML (IVP) Vial IV.PUSH PRN (21:09)
[2018-03-01] MEDS: Pantoprazole Inj 40 MG Vial IV.PUSH SCH (21:09)
[2018-03-01] MEDS: Enoxaparin Inj 40 MG/0.4 ML Syringe SQ SCH (23:04)
[2018-03-02] MEDS: Levothyroxine 100 MCG Tablet PO SCH (05:09)
[2018-03-02] MEDS: Ketorolac Inj 30 MG/ML (IVP) Vial IV.PUSH PRN ×2 (05:09→19:43)
--- NOTE | 2018-03-02 07:28 | P.PNGS ---
Subjective Patient reports: feels better, voiding w/o difficulty (Took Toradol twice overnight. Having some increasing soreness as her activity levels increase. She is already been up walking the halls this morning. She did pass flatus. She is voiding without difficulty. She tolerated one serving of Ensure.), flatus Physical Exam Vital signs: Vital Signs 03/01/18 08:00 03/01/18 12:00 03/01/18 15:36 Temperature 97.5 F L 97.6 F Pulse Rate 72 68 Respiratory Rate 18 18 18 Blood Pressure 143/73 H 141/77 H Pulse Oximetry 98 99 03/01/18 16:00 03/01/18 16:25 03/01/18 20:00 Temperature 98.0 F 97.8 F Pulse Rate 75 109 H Respiratory Rate 19 18 16 Blood Pressure 160/68 H 143/70 H Pulse Oximetry 99 98 03/02/18 00:00 Temperature 98.1 F Pulse Rate 95 H Respiratory Rate 16 Blood Pressure 155/78 H Pulse Oximetry 95 Intake & Output 03/01/18 03/02/18 03/02/18 18:59 06:59 18:59 Intake Total 1880 / 1880 2580 / 2580 Balance 1880 / 1880 2580 / 2580 Weight 80.9 kg Intake: IV 1100 / 1100 2100 / 2100 Ofirmev Inj 1,000 mg In 100 ml 100 / 100 100 / 100 @ 400 mls/hr IV.SIG Q6H JENN Rx# :[id number] LR 1000 mL Inj 1,000 ML @ 125 1000 / 1000 2000 / 2000 mls/hr IV.SIG .Q8H JENN Rx#: [id number] Oral 780 / 780 480 / 480 Other: # Voids 5 2 Date of Last Bowel Movement 02/25/18 02/25/18 # Bowel Movements 0 Narrative: Abdomen is soft and nondistended. PIC O dressing is intact with a minimal dried bloody drainage. She has normal bowel sounds. Her laparoscopy incision sites are healing well but he Steri-Strips. There is no erythema or drainage. Her extremities are nonedematous. Assessment and Plan - Assessment (1) Appendicitis, acute Code(s): K35.80 - Unspecified acute appendicitis Status: Acute Plan: Is a 58-year-old woman with history of hypothyroidism and unknown but newly diagnosed anemia who presents with abdominal pain and findings most consistent with a complicated acute appendicitis. The cecum appears thickened. I discussed in detail with the patient my recommendations for laparoscopy laparoscopic appendectomy possible open surgery possible bowel resection. She is medically aware and is agreeable to proceed with my recommendations and understands the potential findings at surgery and the potential surgical outcomes. The risks of bleeding infection injury to intra-abdominal contents including bowel ureter bladder possible open surgery possible bowel resection DVT pulmonary embolus and expectations for recovery and she understands and wished to proceed. Patient is received preoperative intravenous antibiotics. Sequential compression device will be used. (2) Abnormal computed tomography of cecum and terminal ileum Code(s): R93.3 - Abnormal findings on diagnostic imaging of other parts of digestive tract Status: Acute Plan: Postop day 2 status post laparoscopic-assisted right colon resection for horribly abnormal appendix and ascending colon. Pathology still pending. Patient is passed flatus. She desires some regular food. Regular diet has been ordered. We will decrease IV fluids to 50 mL/h and saline lock IV when tolerating p.o. well. She will continue to be up and out of bed sitting in the chair walking the halls as tolerated. Hopefully discharge home within the next 24 hours. - Plan Postop day 1, laparoscopic assisted right hemicolectomy for grossly abnormal appendix, cecum and ascending colon, worrisome for potential colon cancer. Anemia also concerning for colon cancer. Hemoglobin today 6.9. Patient remains hemodynamically stable. Plan ensure vanilla over ice 1 serving 3 times a day as tolerated. Patient will walk the halls later this afternoon. She remains very comfortable. She does not desire any additional pain medication. She wants to wait on taking any iron supplementation until her bowel function has returned. Anticipate hospitalization for 1-2 more days. Discussed potential for pathology, showed her operative photographs of what was resected.
[2018-03-02] MEDS: Senna/Docusate Sodium 8.6/50 MG Tablet PO SCH ×2 (08:15→20:02)
[2018-03-02 10:02] LABS: Hematocrit 21.7 % (35.0-46.0); Hemoglobin 6.6 gm/dL (11.6-15.3)
[2018-03-02] MEDS: Pantoprazole Inj 40 MG Vial IV.PUSH SCH (18:21)
[2018-03-02] MEDS: Enoxaparin Inj 40 MG/0.4 ML Syringe SQ SCH (18:21)
[2018-03-03] MEDS: Ketorolac Inj 30 MG/ML (IVP) Vial IV.PUSH PRN ×2 (05:01→11:44)
[2018-03-03] MEDS: Levothyroxine 100 MCG Tablet PO SCH (05:47)
[2018-03-03] MEDS: Senna/Docusate Sodium 8.6/50 MG Tablet PO SCH (08:02)
--- NOTE | 2018-03-03 11:05 | P.PNGS ---
Subjective Patient reports: feels better, pain is less, tolerating liquids well, flatus, bowel movement, afebrile Physical Exam Vital signs: Vital Signs 03/02/18 12:00 03/02/18 16:00 03/02/18 20:00 Temperature 97.8 F 98.3 F 98.3 F Pulse Rate 80 78 88 Respiratory Rate 17 18 18 Blood Pressure 160/79 H 178/81 H 153/91 H Pulse Oximetry 97 99 97 03/03/18 02:47 Temperature 98.1 F Pulse Rate 76 Respiratory Rate 18 Blood Pressure 145/86 H Pulse Oximetry 98 Intake & Output 03/02/18 03/03/18 03/03/18 18:59 06:59 18:59 Intake Total 800 / 800 1000 / 1000 Balance 800 / 800 1000 / 1000 Intake: IV 1000 / 1000 LR 1000 mL Inj 1,000 ML @ 125 1000 / 1000 mls/hr IV.SIG .Q8H JENN Rx#: [id number] Oral 800 / 800 Other: # Voids 7 2 Date of Last Bowel Movement 03/03/18 # Bowel Movements 0 1 - Constitutional no acute distress - Routine Respiratory Exam Present: CTA bilaterally - Routine Cardiovascular Exam Present: RRR - Routine Abdominal Exam Present: soft, normoactive bowel sounds, wound Assessment and Plan - Assessment (1) Appendicitis, acute Code(s): K35.80 - Unspecified acute appendicitis Status: Acute Plan: Is a 58-year-old woman with history of hypothyroidism and unknown but newly diagnosed anemia who presents with abdominal pain and findings most consistent with a complicated acute appendicitis. The cecum appears thickened. I discussed in detail with the patient my recommendations for laparoscopy laparoscopic appendectomy possible open surgery possible bowel resection. She is medically aware and is agreeable to proceed with my recommendations and understands the potential findings at surgery and the potential surgical outcomes. The risks of bleeding infection injury to intra-abdominal contents including bowel ureter bladder possible open surgery possible bowel resection DVT pulmonary embolus and expectations for recovery and she understands and wished to proceed. Patient is received preoperative intravenous antibiotics. Sequential compression device will be used. (2) Abnormal computed tomography of cecum and terminal ileum Code(s): R93.3 - Abnormal findings on diagnostic imaging of other parts of digestive tract Status: Acute Plan: Postop day 2 status post laparoscopic-assisted right colon resection for horribly abnormal appendix and ascending colon. Pathology still pending. Patient is passed flatus. She desires some regular food. Regular diet has been ordered. We will decrease IV fluids to 50 mL/h and saline lock IV when tolerating p.o. well. She will continue to be up and out of bed sitting in the chair walking the halls as tolerated. Hopefully discharge home within the next 24 hours. doing well. wants to go home today. will fu in office monday to remove gisela
--- NOTE | 2018-04-09 17:28 | P.DS ---
Date of admission: 02/28/18 12:11 Primary care physician: Bharat Oneill MD Attending physician on discharge: Brandin Schmidt Anticipated date of discharge: 03/03/18 Brief History from admission: Patient is a pleasant 58-year-old woman who actually works here at [employer] who began experiencing significant right-sided abdominal pain loss of appetite and chills on Monday. She has not eaten much since then. She denies fevers. She has had normal urinary output but has not had much of any bowel function. She has a known history of hypothyroidism for which she takes Synthroid. She did not take it for about a month before her recent [employer] exam and labs have been delayed until she has been on her Synthroid for at least a month. She denies hematemesis. She denies blood in her stool or black tarry tarry stools. She has a previous history of laparoscopic tubal ligation. 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 She did not have any problems with her anesthesia. She was evaluated emergency department [place] and found to have an elevated white count with a left shift. She is also interestingly found to have anemia. The etiology is unclear. CT scan demonstrates an inflammatory mass in the right lateral abdomen consistent with appendicitis. Additionally the cecum is inflamed or thickened and there are apparent inflammatory lymph nodes. There is no free air or free fluid. She was transported to the [facility] for surgical treatment due to her abnormal appearing cecum as well as her anemia. She did have a Hemoccult study at the [place] [facility] before transport by her report was negative. Her last colonoscopy was at age 49 and apparently was normal. DS: Summary Hospital Course: Postop day 2 status post laparoscopic-assisted right colon resection for horribly abnormal appendix and ascending colon. Pathology still pending. Patient is passed flatus. She desires some regular food. Regular diet has been ordered. We will decrease IV fluids to 50 mL/h and saline lock IV when tolerating p.o. well. She will continue to be up and out of bed sitting in the chair walking the halls as tolerated. - Time Spent with Patient Total time spent providing and/or coordinating discharge services: Less than 30 minutes - Quality: VTE Deep Vein Thrombosis/Pulmonary Embolism Present on Admission: No Exam Narrative: Alert and awake Cardio: RRR Resp: CTAB Abd: inc c/d/i; minimal post op tenderness Results Procedures completed during hospitalization: 2 status post laparoscopic-assisted right colon resection - Impressions ITS Impressions Chest X-Ray 02/28/18 09:14 CONCLUSION: No acute cardiopulmonary disease Abdomen/Pelvis CT 02/28/18 10:16 CONCLUSION: 1. Wall thickening of the cecum with dilated tubular structure and probable appendicolith. This is concerning for acute appendicitis. 2. There are some prominent lymph nodes in the right lower quadrant likely inflammatory. 3. Small amount of pelvic free fluid. Discharge Plan - Discharge Disposition Patient Disposition: 01 Discharge Home - Discharge Condition Condition: Stable - Discharge Order Discharge Orders: Discharge Order (Routine); Ordered 03/03/18 Ordered By: Jc Swartz - Physicians Team Primary Care Provider: Bharat Oneill Attending Provider: Brandin Schmidt
== END 2018-03-03 16:56 | disposition home or self-care (01) ==
LOC: PHED 08:56 → PHEDA 12:11 → N05 16:08 → N07 20:21
PROVIDERS: ADMIT Surgery Trauma Surgery; ATTEND Surgery Trauma Surgery